=== PATIENT | male | born 1975 | race Caucasian/White ===

== ENCOUNTER → 2017-08-01 | Outpatient (CLI) | payer OTHER ==
--- NOTE | 2017-08-01 11:08 | RADIOLOGY REPORT (SQ) ---
EXAM DESCRIPTION: ANKLE RIGHT COMPLETE COMPLETED DATE/TIME: 08/01/2017 10:53 am REASON FOR STUDY: PAIN IN RIGHT ANKLE AND JOINTS OF RIGHT FOOT M25.571 PAIN IN RIGHT ANKLE AND JOIN TS OF RIGHT FOOT COMPARISON: None. NUMBER OF VIEWS: Three views. TECHNIQUE: AP, lateral, and oblique radiographic images acquired of the right ankle. LIMITATIONS: None. FINDINGS: MINERALIZATION: Normal. BONES: No acute fracture or dislocation. No worrisome bone lesions. JOINTS: No effusions. SOFT TISSUES: No soft tissue swelling. No foreign body. OTHER: No other significant finding. IMPRESSION: NEGATIVE STUDY OF THE RIGHT ANKLE. NO RADIOGRAPHIC EVIDENCE OF ACUTE INJURY. TECHNICAL DOCUMENTATION: JOB ID: [id number] [employer]- All Rights Reserved
== END ==
LOC: OD 10:35
PROVIDERS: ATTEND Physician Assistant
DX: M25.571 Pain in right ankle and joints of right foot (principal)

== ENCOUNTER 2017-11-29 13:54 | Emergency (ER) | payer OTHER ==
[2017-11-29 14:09] VITALS: BP 116/77
--- NOTE | 2017-11-29 14:28 | ER Document Report ---
HPI - HPI Patient complains to provider of: Left ankle sprain Onset: Yesterday - Last evening Quality of pain: Throbbing Pain Level: 5 Context: 42-year-old male was trying to put garbage into the can the end of the driveway and he inverted his left ankle. It is painful and swollen and hurts to walk on it he is using crutches that he had at home. Associated Symptoms: None Exacerbated by: Movement, Walking Relieved by: Denies Similar symptoms previously: No Recently seen / treated by doctor: No - ROS ROS below otherwise negative: Yes Systems Reviewed and Negative: Yes All other systems reviewed and negative Past Medical History - General Information source: Patient - Social History Smoking Status: Unknown if Ever Smoked Frequency of alcohol use: None Drug Abuse: None Lives with: Family Family History: Reviewed & Not Pertinent - Medical History Medical History: Negative Surgical Hx: Negative Vertical Provider Document - CONSTITUTIONAL Agree With Documented VS: Yes Exam Limitations: No Limitations - INFECTION CONTROL TRAVEL OUTSIDE OF THE [place] IN LAST 30 DAYS: No - HEENT HEENT: Atraumatic, Normocephalic - NECK Neck: Supple - RESPIRATORY O2 Sat by Pulse Oximetry: 97 - MUSCULOSKELETAL/EXTREMETIES Musculoskeletal/Extremeties: Tender, Edema - Medial and lateral malleolus, 2+ DP. negative: FROM - limits due to pain - NEURO Level of Consciousness: Awake, Alert, Appropriate Motor/Sensory: No Motor Deficit, No Sensory Deficit - DERM Integumentary: Warm, Dry, No Rash Course - Re-evaluation Re-evalutation: 11/29/17 16:43 CT shows fracture of the left posterior tibia. I explained this to the patient we will put a posterior ankle splint and adjust his crutches so that they fit appropriately refer him to orthopedics and prescribe him a few hydrocodone for pain. He states he does not need a work note - Vital Signs Vital signs: Temp Pulse Resp BP Pulse Ox 98.3 F 90 16 116/77 97 11/29/17 14:05 11/29/17 14:05 11/29/17 14:05 11/29/17 14:05 11/29/17 14:05 Procedures - Immobilization Left Ankle Time completed: 17:30 Pre-Proc Neuro Vasc Exam: Normal Immobilizer type: Posterior ankle Performed by: NICO Fajardo Post-Proc Neuro Vasc Exam: Normal Alignment checked and good: Yes Discharge - Discharge Clinical Impression: fx posterior left tibia Condition: Good Disposition: HOME, SELF-CARE Instructions: Use of Crutches ([facility]), Oral Narcotic Medication ([facility]), Splint Pending Casting ([facility]), Splint Precautions ([facility]), Fractured Tibia ([facility]) Additional Instructions: non weight bearing splint call the orthopedic doctor tomorrow and schedule an appointment Return to the emergency room any concerns Please complete the patient satisfaction survey if you get one, and return it.. If you do not receive a survey, then you can go to the [facility] website, [email or web address] and place your comments about your very good care. Thank you very much. It was a pleasure being your medical provider today. Prescriptions: Hydrocodone Bit/Acetaminophen [Hydrocodon-Acetaminophen 5-325] 1 each PO Q4HP PRN #15 tablet PRN Reason: Referrals: CHRISTINE ESPINOSA MD [ACTIVE STAFF] - 11/30/17 (call tomorrow for appointment)
--- NOTE | 2017-11-29 15:43 | RADIOLOGY REPORT (SQ) ---
EXAM DESCRIPTION: FOOT LEFT COMPLETE COMPLETED DATE/TIME: 11/29/2017 3:24 pm REASON FOR STUDY: injury COMPARISON: Left ankle films same date NUMBER OF VIEWS: Three views. TECHNIQUE: AP, lateral and oblique radiographic images acquired of the left foot. LIMITATIONS: None. FINDINGS: MINERALIZATION: Normal. BONES: Irregularity of the bony cortex of the tarsal navicular. Question fracture. CT of the left f oot may be useful for followup. JOINTS: No effusions. SOFT TISSUES: Dorsal soft tissue swelling. No foreign body. OTHER: No other significant finding. IMPRESSION: Question acute fracture of the tarsal navicular bone. Consider CT for followup TECHNICAL DOCUMENTATION: JOB ID: [id number] [employer]- All Rights Reserved
--- NOTE | 2017-11-29 15:45 | RADIOLOGY REPORT (SQ) ---
EXAM DESCRIPTION: ANKLE LEFT COMPLETE COMPLETED DATE/TIME: 11/29/2017 3:24 pm REASON FOR STUDY: injury COMPARISON: Left foot films same date NUMBER OF VIEWS: Three views. TECHNIQUE: AP, lateral, and oblique radiographic images acquired of the left ankle. LIMITATIONS: None. FINDINGS: MINERALIZATION: Normal. BONES: Question acute fracture of the tarsal navicular. Consider CT for followup. Talus, distal fibula, distal tibia intact. JOINTS: No gross ankle joint effusion. Normal alignment at the ankle mortise SOFT TISSUES: Mild dorsal midfoot soft tissue swelling. No radiopaque foreign body or soft tissue ga s OTHER: No other significant finding. IMPRESSION: Question acute fracture of the tarsal navicular bone. Consider CT of the left foot for followup TECHNICAL DOCUMENTATION: JOB ID: [id number] [employer]- All Rights Reserved
--- NOTE | 2017-11-29 16:37 | RADIOLOGY REPORT (SQ) ---
EXAM DESCRIPTION: CT LT LOWER EXTREMITY WITHOUT COMPLETED DATE/TIME: 11/29/2017 4:24 pm REASON FOR STUDY: ? tarsal navicular bone fx per santos COMPARISON: Left foot three views, left ankle three views same date TECHNIQUE: CT scan of the left foot performed without intravenous or oral contrast. Images reviewed with soft tissue and bone windows. Reconstructed coronal and sagittal MPR images reviewed. All jarrett ges stored on PACS. Additional 3D shaded surface display images were generated on an independent workstation All CT scanners at this facility use dose modulation, iterative reconstruction, and/or weight based d osing when appropriate to reduce radiation dose to as low as reasonably achievable (ALARA). [facility]: Dose Right [facility]: CareDose [facility]: Dose Right [facility]: Teradose 4D [facility]: [employer] RADIATION DOSE: CT Rad equipment meets quality standard of care and radiation dose reduction techniq ues were employed. CTDIvol: 4.1 mGy. DLP: 143 mGy-cm. mGy. LIMITATIONS: None. FINDINGS: Normal bone density. On axial image 42, sagittal reconstruction image 27, a nondisplaced acute fracture through the gravel inspector ior articular surface distal tibia is present. No widening of the distal tibiofibular joint. Very s ubtle widening of the medial ankle mortise. Talus, calcaneus, tarsal bones are intact. In particular, no acute navicular bone fracture is seen. Remainder of the bones of foot are otherwise unremarkable. There is diffuse soft tissue swelling around the ankle joint IMPRESSION: Acute nondisplaced fracture, posterior articular surface distal tibia. No other acute fractures are identified. In particular, tarsal navicular bone is intact. TECHNICAL DOCUMENTATION: JOB ID: [id number] Quality ID # [id number]: Final reports with documentation of one or more dose reduction techniques (e.g., Au tomated exposure control, adjustment of the mA and/or kV according to patient size, use of iterative reconstruction technique) 2010 [employer]- All Rights Reserved
== END 2017-11-29 18:10 | disposition home or self-care (01) ==
LOC: ER 13:54
PROC: 2W3RX1Z Immobilization of Left Lower Leg using Splint (ICD-10-PCS; principal; 2017-11-29)
DX: S93.402A Sprain of unspecified ligament of left ankle, initial encounter (principal); S82.112A Displaced fracture of left tibial spine, initial encounter for closed fracture; X50.3XXA Overexertion from repetitive movements, initial encounter
CPT/HCPCS: 99283

== ENCOUNTER → 2018-08-27 | Outpatient (CLI) | payer OTHER ==
--- NOTE | 2018-08-27 14:33 | RADIOLOGY REPORT (SQ) ---
EXAM DESCRIPTION: FINGER LEFT COMPLETED DATE/TIME: 08/27/2018 1:59 pm REASON FOR STUDY: PAIN OF LEFT THUMB fell, injury pain COMPARISON: None. NUMBER OF VIEWS: Three views. TECHNIQUE: AP, lateral, and oblique images acquired of the left thumb. LIMITATIONS: None. FINDINGS: MINERALIZATION: Normal. Benign bone islands in the distal and proximal phalanges left [place] mb BONES: No acute fracture or dislocation. No worrisome bone lesions. SOFT TISSUES: No soft tissue swelling. No foreign body. OTHER: No other significant finding. IMPRESSION: NO RADIOGRAPHIC EVIDENCE OF ACUTE INJURY. COMMENT: SITE OF TRAUMA/COMPLAINT MARKED/STAMP COMPLETED: Yes TECHNICAL DOCUMENTATION: JOB ID: [id number] [employer]- All Rights Reserved Reading location - IP/workstation name: [email or web address]
== END ==
LOC: RAD 13:34
PROVIDERS: ATTEND Nurse Practitioner Family
DX: M79.645 Pain in left finger(s) (principal)